=== PATIENT | male | born 1985 | race Caucasian/White ===

== ENCOUNTER 2021-05-25 06:58 | Inpatient (IN) ==
--- NOTE | 2021-05-25 07:22 | Emergency Department Note ---
HPI General Chief complaint: Nausea/Vomiting/Diarrhea Stated complaint: Dehydration Time Seen by Provider: 05/25/21 07:11 Source: patient Mode of arrival: ambulatory Limitations: no limitations History of Present Illness HPI Narrative: Narrative: Patient presents to the emergency department for intermittent muscle spasms of his upper extremity, left calf. 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 His symptoms have been going on for about the last week. Yesterday patient reports nausea without vomiting but dry heaves. Patient since has been tolerating p.o. intake. Patient changes, no substance use. Patient denies alcohol use. Patient denies any focal weakness or numbness or tingling, no visual changes. No fevers or chills. No sick contacts. Related Data Home Medications Medication Instructions Recorded Confirmed montelukast 10 mg tablet 10 mg PO QPM 09/19/19 05/25/21 Previous Rx's Medication Instructions Recorded cholecalciferol (vitamin D3) 50 2,000 unit PO QDAY #1 tab 02/28/19 mcg (2,000 unit) tablet sertraline 100 mg tablet 100 mg PO QDAY 90 Days #90 tab 12/17/20 omeprazole 20 mg tablet,delayed 20 mg PO QDAY 90 Days #90 tab 03/28/21 release albuterol sulfate 90 mcg/actuation 2 puff INHALATION Q6H PRN #18 g 04/04/21 aerosol inhaler buspirone 10 mg tablet 20 mg PO BID 90 Days #360 tab 05/23/21 Allergies Allergy/AdvReac Type Severity Reaction Status Date / Time animal dander Allergy Unknown Congestion Verified 05/25/21 06:59 House Dust Allergy Unknown Congestion Verified 05/25/21 06:59 Seasonal Allergies Allergy Unknown Congestion Uncoded 05/17/20 09:13 Review of Systems ROS ROS Narrative: Narrative: All systems ED: reviewed and negative except as stated. 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) Hypertension (Chronic) Dysphagia (Chronic) Hyperglycemia (Chronic) Body mass index (BMI) of 40.0-44.9 in adult (Chronic) Sprain of calcaneofibular ligament of right ankle, initial encounter (Chronic) Disorder of ligament, left ankle (Chronic) Ankle pain, left (Chronic) Seasonal allergies (Chronic) Sleep apnea (Chronic) Obesity (Chronic) Hypogonadism in male (Chronic) Mood problem (Chronic) Fatigue (Chronic ~2009) Low testosterone (Chronic ~2009) Hiatal hernia (Chronic) Depression (Chronic ~2001) Anxiety (Chronic ~2001) Acid reflux (Chronic) Strain of calf muscle (Chronic) Medical History (Updated 05/26/21 @ 07:18 by Sudheer Gonzalez MD) Acid reflux Adjustment disorder with depressed mood Ankle pain, left Anxiety (~2001) Body mass index (BMI) of 40.0-44.9 in adult Chronic folliculitis Depression (~2001) Disorder of ligament, left ankle Dysphagia ED (erectile dysfunction) of organic origin Fatigue (~2009) Hiatal hernia Hyperglycemia Hypertension Hypogonadism in male Low back pain Low testosterone (~2009) Major depressive disorder, recurrent, mild Mood problem Obesity Seasonal allergies Sleep apnea Sprain of calcaneofibular ligament of right ankle, initial encounter Testicular hypofunction Vitamin D deficiency Surgical History History of tonsillectomy and adenoidectomy No pertinent past surgical history Family History Father DMII (diabetes mellitus, type 2) CVA (cerebral vascular accident) Cancer Mother DMII (diabetes mellitus, type 2) Social History Smoking Status: Never smoker Alcohol Intake Frequency: a few times a month Substance Use: does not use Exam Narrative Narrative: Narrative: General Limitations: no limitations General appearance: Present alert, in no apparent distress and nontoxic Head Head: Present atraumatic, normocephalic and normal inspection ENT ENT: Present normal exam Neck Neck: Present normal inspection Chest Chest: Present normal inspection Respiratory Respiratory: Present normal lung sounds bilaterally; Absent wheezes, stridor and decreased breath sounds Cardiovascular Cardiovascular: Present regular rate, normal rhythm and normal heart sounds Adbominal Abdominal: Present soft and normal bowel sounds Extremities Extremities: Present normal inspection and full ROM Back Back: Absent CVA tenderness (R) and CVA tenderness (L) Neurological Neurological: Present alert, oriented X3 and other (2+ patellar reflex bilaterally, 2+ reflex at the bicep, 5 out of 5 strength throughout, sensation to light touch intact. 3 beats of clonus at bilateral ankle) Psychiatric Psychiatric: Present normal affect Skin Skin: Present warm (WNL) and dry; Absent rash Course Vital Signs Vital signs: Vital Signs Temperature 97.2 F 05/25/21 06:59 Pulse Rate 108 H 05/25/21 06:59 Respiratory Rate 16 05/25/21 06:59 Blood Pressure 133/90 05/25/21 06:59 Pulse Oximetry (%) 97 05/25/21 06:59 Temperature 97.3 F 05/26/21 03:50 Pulse Rate 73 05/26/21 03:50 Respiratory Rate 16 05/26/21 03:50 Blood Pressure 112/69 05/26/21 03:50 Pulse Oximetry (%) 96 05/26/21 03:50 MDM MDM Narrative Medical decision making narrative: Narrative: Patient presents to the emergency department with fasciculations and muscle cramping. Patient has been working in a warehouse and reports he has been extremely hot. Patient was found to have a significantly elevated phosphorus with acute kidney injury. Patient had mildly elevated CK. Discussion was had with nephrology who was agreeable to be consulted with the patient, patient will be admitted to the hospitalist for further work-up and evaluation of hyperphosphatemia and acute kidney injury. Lab Data Result diagrams: 05/26/21 05:14 05/26/21 05:13 Labs: Lab Results 05/25/21 05/25/21 05/25/21 Range/Units 07:40 07:40 07:40 WBC 15.2 H (4.5-11.0) K/mcL RBC 6.17 H (4.50-5.90) M/mcL Hgb 18.7 H (13.5-16.5) g/dL Hct 52.5 (41.0-55.0) % MCV 85.1 (80.0-100.0) fL MCH 30.3 (26.0-34.0) pg MCHC 35.6 (31.0-36.0) g/dL RDW 12.2 (11.5-14.5) % Plt Count 339 (140-440) K/mcL MPV 10.5 H (7.4-10.4) fL Neut % (Auto) 90.3 H (38.0-78.0) % Lymph % (Auto) 5.8 L (15.0-49.0) % [place] % (Auto) 3.5 (1.0-12.0) % Eos % (Auto) 0.1 (0.0-7.0) % Baso % (Auto) 0.3 (0.0-2.0) % Lymph # (Auto) 0.88 L (1.50-4.80) K/mcL [place]pson # (Auto) 0.53 (0.10-0.90) K/mcL Eos # (Auto) 0.01 (0.00-0.70) K/mcL Baso # (Auto) 0.04 (0.00-0.20) K/mcL Absolute Neutrophils 13.75 H (1.80-8.00) K/mcL Sodium (133-145) mmol/L Potassium (3.3-5.1) mmol/L Chloride (96-108) mmol/L Carbon Dioxide (22-30) mmol/L Anion Gap (8.0-16.0) BUN (6-20) mg/dL Creatinine (0.7-1.2) mg/dL GFR Calculation Glucose (70-105) mg/dL Calcium (8.6-10.4) mg/dL Phosphorus (2.5-4.5) mg/dL Magnesium (1.6-2.5) mg/dL Total Bilirubin (0.1-1.0) mg/dL AST (<40) U/L ALT (<40) U/L Alkaline Phosphatase (39-117) U/L Total Creatine Kinase 347 H (24-195) U/L Total Protein (5.9-8.4) gm/dL Albumin (3.2-5.2) gm/dL Globulin (2.2-3.7) gm/dL Albumin/Globulin Ratio (1.0-2.3) TSH 2.03 (0.27-5.01) uIU/mL Urine Color Urine Appearance (Clear) Urine pH (5.0-9.0) Ur Specific [place] (1.000-1.035) Urine Protein (Negative) mg/dL Urine Glucose (UA) (Negative) mg/dL Urine Ketones (Negative) mg/dL Urine Occult Blood (Negative) mg/dL Urine Nitrate (Negative) Urine Bilirubin (Negative) mg/dL Urine Urobilinogen mg/dL Ur Leukocyte Esterase (Negative) /ug Ur Culture Indicated? Ur Random Creatinine (39.0-259.0) mg/dL U Random Total Protein mg/dL U Ralph Prot/Creat Ratio (<0.20) 05/25/21 05/25/21 05/25/21 Range/Units 07:41 10:25 10:25 WBC (4.5-11.0) K/mcL RBC (4.50-5.90) M/mcL Hgb (13.5-16.5) g/dL Hct (41.0-55.0) % MCV (80.0-100.0) fL MCH (26.0-34.0) pg MCHC (31.0-36.0) g/dL RDW (11.5-14.5) % Plt Count (140-440) K/mcL MPV (7.4-10.4) fL Neut % (Auto) (38.0-78.0) % Lymph % (Auto) (15.0-49.0) % Upson % (Auto) (1.0-12.0) % Eos % (Auto) (0.0-7.0) % Baso % (Auto) (0.0-2.0) % Lymph # (Auto) (1.50-4.80) K/mcL [place]pson # (Auto) (0.10-0.90) K/mcL Eos # (Auto) (0.00-0.70) K/mcL Baso # (Auto) (0.00-0.20) K/mcL Absolute Neutrophils (1.80-8.00) K/mcL Sodium 137 (133-145) mmol/L Potassium 3.9 (3.3-5.1) mmol/L Chloride 88 L (96-108) mmol/L Carbon Dioxide 25 (22-30) mmol/L Anion Gap 24.0 H (8.0-16.0) BUN 35 H (6-20) mg/dL Creatinine 2.5 H (0.7-1.2) mg/dL GFR Calculation 32 Glucose 121 H (70-105) mg/dL Calcium 10.0 (8.6-10.4) mg/dL Phosphorus 9.1 H* (2.5-4.5) mg/dL Magnesium 2.0 (1.6-2.5) mg/dL Total Bilirubin 2.9 H (0.1-1.0) mg/dL AST 39 (<40) U/L ALT 41 H (<40) U/L Alkaline Phosphatase 59 (39-117) U/L Total Creatine Kinase (24-195) U/L Total Protein 8.6 H (5.9-8.4) gm/dL Albumin 5.4 H (3.2-5.2) gm/dL Globulin 3.2 (2.2-3.7) gm/dL Albumin/Globulin Ratio 1.7 (1.0-2.3) TSH (0.27-5.01) uIU/mL Urine Color Urine Appearance (Clear) Urine pH (5.0-9.0) Ur Specific [place] (1.000-1.035) Urine Protein (Negative) mg/dL Urine Glucose (UA) (Negative) mg/dL Urine Ketones (Negative) mg/dL Urine Occult Blood (Negative) mg/dL Urine Nitrate (Negative) Urine Bilirubin (Negative) mg/dL Urine Urobilinogen mg/dL Ur Leukocyte Esterase (Negative) /ug Ur Culture Indicated? Ur Random Creatinine 252.7 259.0 (39.0-259.0) mg/dL U Random Total Protein 15 mg/dL U Ralph Prot/Creat Ratio 0.06 (<0.20) 05/25/ Range/Units 10:25 WBC (4.5-11.0) K/mcL RBC (4.50-5.90) M/mcL Hgb (13.5-16.5) g/dL Hct (41.0-55.0) % MCV (80.0-100.0) fL MCH (26.0-34.0) pg MCHC (31.0-36.0) g/dL RDW (11.5-14.5) % Plt Count (140-440) K/mcL MPV (7.4-10.4) fL Neut % (Auto) (38.0-78.0) % Lymph % (Auto) (15.0-49.0) % [place] % (Auto) (1.0-12.0) % Eos % (Auto) (0.0-7.0) % Baso % (Auto) (0.0-2.0) % Lymph # (Auto) (1.50-4.80) K/mcL [place] # (Auto) (0.10-0.90) K/mcL Eos # (Auto) (0.00-0.70) K/mcL Baso # (Auto) (0.00-0.20) K/mcL Absolute Neutrophils (1.80-8.00) K/mcL Sodium (133-145) mmol/L Potassium (3.3-5.1) mmol/L Chloride (96-108) mmol/L Carbon Dioxide (22-30) mmol/L Anion Gap (8.0-16.0) BUN (6-20) mg/dL Creatinine (0.7-1.2) mg/dL GFR Calculation Glucose (70-105) mg/dL Calcium (8.6-10.4) mg/dL Phosphorus (2.5-4.5) mg/dL Magnesium (1.6-2.5) mg/dL Total Bilirubin (0.1-1.0) mg/dL AST (<40) U/L ALT (<40) U/L Alkaline Phosphatase (39-117) U/L Total Creatine Kinase (24-195) U/L Total Protein (5.9-8.4) gm/dL Albumin (3.2-5.2) gm/dL Globulin (2.2-3.7) gm/dL Albumin/Globulin Ratio (1.0-2.3) TSH (0.27-5.01) uIU/mL Urine Color Yellow Urine Appearance Hazy A (Clear) Urine pH 5.0 (5.0-9.0) Ur Specific [place] 1.025 (1.000-1.035) Urine Protein Negative (Negative) mg/dL Urine Glucose (UA) Negative (Negative) mg/dL Urine Ketones 20 A (Negative) mg/dL Urine Occult Blood Negative (Negative) mg/dL Urine Nitrate Negative (Negative) Urine Bilirubin Negative (Negative) mg/dL Urine Urobilinogen Negative mg/dL Ur Leukocyte Esterase Negative (Negative) /ug Ur Culture Indicated? No Ur Random Creatinine (39.0-259.0) mg/dL U Random Total Protein mg/dL U Ralph Prot/Creat Ratio (<0.20) ED POC Tests ED POC Tests: LUCITA - SARS Antigen Negative CC TIME Critical Care Time Critical Care Time: No Discharge Plan Patient/Caregiver Discharge Instructions Pt seen by DIRECTOR OF CLINICAL APPLICATIONS/PA only: No Clinical Impression: Hyperphosphatemia, Acute kidney injury Patient Disposition: Xfer As Inpt ([facility]) Condition: Good Discharge Date/Time: 05/25/21 11:50
[2021-05-25] MEDS ORDERED: LACTATED RINGERS 1,000 ML IV ONE (07:27)
[2021-05-25 08:37] LABS: Basophils # (Auto) 0.04 K/mcL (0.00-0.20); Basophils % (Auto) 0.3 % (0.0-2.0); Eosinophils # (Auto) 0.01 K/mcL (0.00-0.70); Eosinophils % (Auto) 0.1 % (0.0-7.0); Hematocrit 52.5 % (41.0-55.0); Hemoglobin 18.7 g/dL (13.5-16.5); Lymphocytes # (Auto) 0.88 K/mcL (1.50-4.80); Lymphocytes % (Auto) 5.8 % (15.0-49.0); Mean Cell Volume 85.1 fL (80.0-100.0); Mean Corpuscular HGB Conc 35.6 g/dL (31.0-36.0); Mean Platelet Volume 10.5 fL (7.4-10.4); Monocytes # (Auto) 0.53 K/mcL (0.10-0.90); Monocytes % (Auto) 3.5 % (1.0-12.0); Neutrophils % (Auto) 90.3 % (38.0-78.0); Platelet Count 339 K/mcL (140-440); RBC 6.17 M/mcL (4.50-5.90); Red Cell Distribution Width 12.2 % (11.5-14.5); WBC 15.2 K/mcL (4.5-11.0)
[2021-05-25 08:49] LABS: ALT/SGPT 41 U/L (<40); AST/SGOT 39 U/L (<40); Albumin 5.4 gm/dL (3.2-5.2); Albumin/Globulin Ratio 1.7 (1.0-2.3); Alkaline Phosphatase 59 U/L (39-117); Bilirubin,Total 2.9 mg/dL (0.1-1.0); Blood Urea Nitrogen 35 mg/dL (6-20); Carbon Dioxide 25 mmol/L (22-30); Chloride 88 mmol/L (96-108); Globulin 3.2 gm/dL (2.2-3.7); Glomerular Filtration Rate 32; Glucose 121 mg/dL (70-105)
[2021-05-25 08:51] LABS: Creatine Kinase 347 U/L (24-195)
[2021-05-25 08:53] LABS: Phosphorous 9.1 mg/dL (2.5-4.5)
--- NOTE | 2021-05-25 10:43 | Nephrology Consult Note ---
HPI Data of Consult Patient: new to practice Consult date: 05/25/21 Requesting physician: Sudheer Gonzalez Primary Care Provider: Meet Galdamez PA-C Consult Narrative Patient Information: Note initiated : 05/25/21 at 10:42 am Patient: Manoj Kuo 35 y/o M admitted on for Dehydration. Manoj Kuo is a 35-year-old male with depression, anxiety, obesity (BMI 33), obstructive sleep apnea presented to [facility] ED on 05/25/21 for nausea, vomiting, diarrhea and muscle spasms. His work up was significant for acute kidney injury and hyperphosphatemia. He is being admitted for further workup and management. Baseline serum creatinine: 0.9 on 02/22/19 and 09/19/19. Nephrology consultation was requested for acute kidney injury. 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 He drank Gatorade only. He was also trying keto diet. He took NSAIDs (Ibuprofen and also Aleve). Chief complaint: Nausea, vomiting, diarrhea and muscle spasms Reason for consult: Acute kidney injury cc:: CC: Constitutional Constitutional: Present weakness; Absent headache(s) EENT Eyes: Absent blurry vision Nose, mouth and throat: Absent sore throat Cardiovascular Cardiovascular: Absent chest pain and palpatations Respiratory Respiratory: Absent cough and dyspnea Gastrointestinal Gastrointestinal: Present diarrhea, nausea and vomiting Genitourinary Genitourinary: as per HPI Integumentary Integumentary: Absent rash Neurological Neurological: Present weakness; Absent confusion Psychiatric Psychiatric: Absent anxiety and panic attacks Hematologic/Lymphatic Hematologic/Lymphatic: Absent easy bleeding and easy bruising Allergic/Immunologic Allergic/Immunologic: Absent tongue swelling and uticaria PFSH PFSH All Active Problems (Updated 05/25/21 @ 10:43 by Amy Alva MD) Hyperphosphatemia (Acute) Acute kidney injury (Acute) Onychomycosis (Acute) Vitamin D deficiency (Chronic) Low back pain (Chronic) Major depressive disorder, recurrent, mild (Chronic) Chronic folliculitis (Chronic) Adjustment disorder with depressed mood (Chronic) 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) Hypertension (Chronic) Dysphagia (Chronic) Hyperglycemia (Chronic) Body mass index (BMI) of 40.0-44.9 in adult (Chronic) Sprain of calcaneofibular ligament of right ankle, initial encounter (Chronic) Disorder of ligament, left ankle (Chronic) Ankle pain, left (Chronic) Seasonal allergies (Chronic) Sleep apnea (Chronic) Obesity (Chronic) Hypogonadism in male (Chronic) Mood problem (Chronic) Fatigue (Chronic ~2009) Low testosterone (Chronic ~2009) Hiatal hernia (Chronic) Depression (Chronic ~2001) Anxiety (Chronic ~2001) Acid reflux (Chronic) Strain of calf muscle (Chronic) Medical History (Updated 05/25/21 @ 10:43 by Amy Alva MD) Acid reflux Adjustment disorder with depressed mood Ankle pain, left Anxiety (~2001) Body mass index (BMI) of 40.0-44.9 in adult Chronic folliculitis Depression (~2001) Disorder of ligament, left ankle Dysphagia ED (erectile dysfunction) of organic origin Fatigue (~2009) Hiatal hernia Hyperglycemia Hypertension Hypogonadism in male Low back pain Low testosterone (~2009) Major depressive disorder, recurrent, mild Mood problem Obesity Seasonal allergies Sleep apnea Sprain of calcaneofibular ligament of right ankle, initial encounter Testicular hypofunction Vitamin D deficiency Surgical History History of tonsillectomy and adenoidectomy No pertinent past surgical history Family History Father DMII (diabetes mellitus, type 2) CVA (cerebral vascular accident) Cancer Mother DMII (diabetes mellitus, type 2) Social History marital status: occupational status: employed occupation: [employer] alcohol intake frequency: a few times a month substance use type: does not use MEDS/ALLERGIES Home Medications and Allergies Home Medications Medication Instructions Recorded Confirmed Type cholecalciferol (vitamin D3) 50 2,000 unit PO QDAY #1 tab 02/28/19 05/25/21 Rx mcg (2,000 unit) tablet montelukast 10 mg tablet 10 mg PO QPM 09/19/19 05/25/21 History methocarbamol 500 mg tablet See Rx Instructions PO Q6H PRN #30 01/26/20 05/25/21 Rx tab sertraline 100 mg tablet 100 mg PO QDAY 90 Days #90 tab 12/17/20 05/25/21 Rx omeprazole 20 mg tablet,delayed 20 mg PO QDAY 90 Days #90 tab 03/28/21 05/25/21 Rx release albuterol sulfate 90 mcg/actuation 2 puff INHALATION Q6H PRN #18 g 04/04/21 05/25/21 Rx aerosol inhaler buspirone 10 mg tablet 20 mg PO BID 90 Days #360 tab 05/23/21 05/25/21 Rx Allergies Allergy/AdvReac Type Severity Reaction Status Date / Time animal dander Allergy Unknown Congestion Verified 05/25/21 06:59 House Dust Allergy Unknown Congestion Verified 05/25/21 06:59 Seasonal Allergies Allergy Unknown Congestion Uncoded 05/17/20 09:13 Physical Examination Vital Signs Vital signs: Temp Pulse Resp BP Pulse Ox 97.2 F 98 H 16 130/82 96 05/25/21 06:59 05/25/21 10:26 05/25/21 06:59 05/25/21 10:24 05/25/21 10:26 General Appearance General appearance: appears started age and fatigue EENT EENT: mucous membranes dry Neck Neck: no JVD Respiratory Respiratory: clear Cardiovascular Cardiology: no edema and regular rhythm Gastrointestinal Gastrointestinal: no tenderness Integumentary Integumentary: no rash Neurologic Neurologic: no focal deficit and alert and oriented x3 Musculoskeletal Musculoskeletal: no deformities Psychiatric Psychiatric: mood/affect appropriate and cooperative Results Lab Results Result Diagrams: 05/25/21 07:40 05/25/21 07:41 Lab results: Most recent lab results Calcium 10.0 mg/dL (8.6-10.4) 05/25/21 07:41 Phosphorus 9.1 mg/dL (2.5-4.5) H* 05/25/21 07:41 Magnesium 2.0 mg/dL (1.6-2.5) 05/25/21 07:41 A/P Assessment and plan (1) Acute kidney injury: Assessment and plan: Manoj Kuo is a 35-year-old male with depression, anxiety, obesity (BMI 33), obstructive sleep apnea presented to [facility] ED on 05/25/21 for nausea, vomiting, diarrhea and muscle spasms. His work up was significant for acute kidney injury and hyperphosphatemia. He is being admitted for further workup and management. Baseline serum creatinine: 0.9 on 02/22/19 and 09/19/19. Nephrology consultation was requested for acute kidney injury. Acute kidney injury with hyperphosphatemia, present on arrival. There is no r ecent history of IV contrast administration. He used NSAIDs recently (Ibuprofen and Aleve). Intravascular volume depletion considered and treated with IV fluid resuscitation. Hyperphosphatemia is likely associated with keto diet and Gatorade with acute kidney injury. Progress: Serum creatinine increased from a baseline of 0.9 in 2019 to 2.5 (05/25/21). Baseline serum creatinine: 0.9 on 02/22/19 and 09/19/19. Hyperphosphatemia. No previous serum phosphorus. Dehydration. No uremic symptoms. Recommendations/Plan: No urgent acute hemodialysis need. IV fluid rehydration. Work up with renal US, urinalysis, urine random sodium, total protein and creatinine. Avoid NSAIDs, nephrotoxic medications and IV contrast. Monitor BMP and urine output. Status: Acute (2) Hyperphosphatemia: Status: Acute Time Spent With Patient Time: Total time spent is greater than 50% in coordination of care (as documented) at patient's floor/unit and/or counseling patient:
--- NOTE | 2021-05-25 11:07 | Internal Med History&Physical ---
HPI History of Present Illness Patient information: Note initiated : 05/25/21 at 10:58 am Service Date, if different from initiated Date: [] Patient: Manoj Kuo 35 y/o M admitted on for Dehydration. Chief Complaint: [] History of present illness: Mr. Kuo is a 35 year old male with a history of depression, GERD, allergies, obesity presented to the ED for nausea and vomiting and found to have an acute kidney injury. Patient says that he has been experiencing increasing lower back pain, bilateral lower extremity and right upper extremity muscle spasms for about 1 week. The patient has been physical activity at work 2 weeks, he works making [employer] and says that his work is physically demanding and sometimes requiring him to lift pounds or more. Work- up in the ED also showed the patient has a leukocytosis, elevated hemoglobin, elevated phosphorus of 9.1, the patient's total bilirubin was also elevated at 2.9, he has had total bilirubin elevation in the past. Creatinine kinase was evaded at 347. Internal medicine was consulted for hospital admission. The patient endorses some mild myalgias and muscle spasm, denies fevers or chills, no new rash but the patient does have what appears to be folliculitis in bilateral lower extremities and abdomen which has increased recently. Review of systems Constitutional: no fever, fatigue, or weight loss Eyes: no vision changes or pain Cardiovascular: no chest pain, no palpitations Respiratory: no cough or dyspnea Gastrointestinal: positive for nausea and vomiting Genitourinary: no dysuria or difficulty voiding Musculoskeletal: positive for muscle spasms Integumentary: no skin lesion or wound Neurological: no focal weakness or numbness Psychiatric: no anxiety or depression Physical exam Head: Atraumatic, normal inspection. Eyes: normal appearance, no scleral icterus. Neck: full ROM Respiratory: no respiratory distress. Cardiovascular: normal rate and rhythm, S1, S2. GI/Abdominal: soft, nontender, no guarding. Extremities: full range of motion, nontender. Neurological: CN II-XII intact, intact motor, intact sensation. Psychiatric: normal mood. 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) Hypertension (Chronic) Dysphagia (Chronic) Hyperglycemia (Chronic) Body mass index (BMI) of 40.0-44.9 in adult (Chronic) Sprain of calcaneofibular ligament of right ankle, initial encounter (Chronic) Disorder of ligament, left ankle (Chronic) Ankle pain, left (Chronic) Seasonal allergies (Chronic) Sleep apnea (Chronic) Obesity (Chronic) Hypogonadism in male (Chronic) Mood problem (Chronic) Fatigue (Chronic ~2009) Low testosterone (Chronic ~2009) Hiatal hernia (Chronic) Depression (Chronic ~2001) Anxiety (Chronic ~2001) Acid reflux (Chronic) Strain of calf muscle (Chronic) Medical History (Updated 05/25/21 @ 10:43 by Amy Alva MD) Acid reflux Adjustment disorder with depressed mood Ankle pain, left Anxiety (~2001) Body mass index (BMI) of 40.0-44.9 in adult Chronic folliculitis Depression (~2001) Disorder of ligament, left ankle Dysphagia ED (erectile dysfunction) of organic origin Fatigue (~2009) Hiatal hernia Hyperglycemia Hypertension Hypogonadism in male Low back pain Low testosterone (~2009) Major depressive disorder, recurrent, mild Mood problem Obesity Seasonal allergies Sleep apnea Sprain of calcaneofibular ligament of right ankle, initial encounter Testicular hypofunction Vitamin D deficiency Surgical History History of tonsillectomy and adenoidectomy No pertinent past surgical history Family History Father DMII (diabetes mellitus, type 2) CVA (cerebral vascular accident) Cancer Mother DMII (diabetes mellitus, type 2) Social History marital status: occupational status: employed occupation: [employer] alcohol intake frequency: a few times a month substance use type: does not use MEDS/ALLERGIES Home Medications and Allergies Home Medications Medication Instructions Recorded Confirmed Type cholecalciferol (vitamin D3) 50 2,000 unit PO QDAY #1 tab 02/28/19 05/25/21 Rx mcg (2,000 unit) tablet montelukast 10 mg tablet 10 mg PO QPM 09/19/19 05/25/21 History methocarbamol 500 mg tablet See Rx Instructions PO Q6H PRN #30 01/26/20 05/25/21 Rx tab sertraline 100 mg tablet 100 mg PO QDAY 90 Days #90 tab 12/17/20 05/25/21 Rx omeprazole 20 mg tablet,delayed 20 mg PO QDAY 90 Days #90 tab 03/28/21 05/25/21 Rx release albuterol sulfate 90 mcg/actuation 2 puff INHALATION Q6H PRN #18 g 04/04/21 05/25/21 Rx aerosol inhaler buspirone 10 mg tablet 20 mg PO BID 90 Days #360 tab 05/23/21 05/25/21 Rx Allergies Allergy/AdvReac Type Severity Reaction Status Date / Time animal dander Allergy Unknown Congestion Verified 05/25/21 06:59 House Dust Allergy Unknown Congestion Verified 05/25/21 06:59 Seasonal Allergies Allergy Unknown Congestion Uncoded 05/17/20 09:13 EXAM Constitutional Vitals: Temp Pulse Resp BP Pulse Ox 97.2 F 98 H 16 130/82 96 05/25/21 06:59 05/25/21 10:26 05/25/21 06:59 05/25/21 10:24 05/25/21 10:26 DATA Data Completed and Pending Labs: Labs from last 24 hours 05/25/21 05/25/21 05/25/21 07:41 07:40 07:40 WBC RBC Hgb Hct MCV MCH MCHC RDW Plt Count MPV Neut % (Auto) Lymph % (Auto) Bent % (Auto) Eos % (Auto) Baso % (Auto) Lymph # (Auto) Bent # (Auto) Eos # (Auto) Baso # (Auto) Absolute Neutrophils Sodium 137 Potassium 3.9 Chloride 88 L Carbon Dioxide 25 Anion Gap 24.0 H BUN 35 H Creatinine 2.5 H GFR Calculation 32 Glucose 121 H Calcium 10.0 Phosphorus 9.1 H* Magnesium 2.0 Total Bilirubin 2.9 H AST 39 ALT 41 H Alkaline Phosphatase 59 Total Creatine Kinase 347 H Total Protein 8.6 H Albumin 5.4 H Globulin 3.2 Albumin/Globulin Ratio 1.7 TSH 2.03 05/25/21 07:40 WBC 15.2 H RBC 6.17 H Hgb 18.7 H Hct 52.5 MCV 85.1 MCH 30.3 MCHC 35.6 RDW 12.2 Plt Count 339 MPV 10.5 H Neut % (Auto) 90.3 H Lymph % (Auto) 5.8 L Bent % (Auto) 3.5 Eos % (Auto) 0.1 Baso % (Auto) 0.3 Lymph # (Auto) 0.88 L Bent # (Auto) 0.53 Eos # (Auto) 0.01 Baso # (Auto) 0.04 Absolute Neutrophils 13.75 H Sodium Potassium Chloride Carbon Dioxide Anion Gap BUN Creatinine GFR Calculation Glucose Calcium Phosphorus Magnesium Total Bilirubin AST ALT Alkaline Phosphatase Total Creatine Kinase Total Protein Albumin Globulin Albumin/Globulin Ratio TSH A/P Narrative A/P Narrative: Assessment: 35 year old male with a history of depression, GERD, obesity presented to the ED for nausea and vomiting and found to have an acute kidney injury. #Acute kidney injury-suspect prerenal #Nausea and vomiting-seems to be resolving #Muscle spasms #Hyperphosphatemia #Elevated CK-mild #Elevated total bilirubin #Leukocytosis-likely stress related/hemoconcentration #Depression #GERD #Allergies #Obesity Plan -IV fluid, follow urine output and renal function -UA, Urine sodium, Urine protein:creatine ratio, C3, C4, CRP. -Follow CK, CBC, bilirubin. -Bilateral renal ultrasound. -Hold PPI and Singulair for now. -Nephrology consult. -Code status: Full -Disposition: home Time Spent With Patient Time: Total time spent is greater than 50% in coordination of care (as documented) at patient's floor/unit and/or counseling patient:
[2021-05-25] MEDS ORDERED: ONDANSETRON 4 MG/2 ML VIAL IV PRN (12:11)
[2021-05-25] MEDS ORDERED: ACETAMINOPHEN 325 MG TABLET PO PRN (12:11)
[2021-05-25] MEDS ORDERED: ALBUTEROL SULFATE 200 PUFF INHALER INH PRN (12:11)
[2021-05-25] MEDS: 0.9 % SODIUM CHLORIDE 1,000 ML IV SCH ×2 (13:10→20:40)
[2021-05-25 13:40] LABS: Creatinine, Spot Urine 252.7 mg/dL (39.0-259.0); Pro:Crea Ratio 0.06 (<0.20)
[2021-05-25 14:05] LABS: ALT/SGPT 36 U/L (<40); AST/SGOT 32 U/L (<40); Albumin 5.1 gm/dL (3.2-5.2); Albumin/Globulin Ratio 1.8 (1.0-2.3); Alkaline Phosphatase 56 U/L (39-117); Bilirubin,Total 2.8 mg/dL (0.1-1.0); Blood Urea Nitrogen 36 mg/dL (6-20); Calcium 10.1 mg/dL (8.6-10.4); Carbon Dioxide 26 mmol/L (22-30); Chloride 90 mmol/L (96-108); Creatine Kinase 281 U/L (24-195); Globulin 2.9 gm/dL (2.2-3.7); Glomerular Filtration Rate 47; Glucose 121 mg/dL (70-105)
[2021-05-25 14:06] LABS: Complement C3 143.5 mg/dL (90.0-180.0)
[2021-05-25] MEDS: 0.9 % SODIUM CHLORIDE 10 ML SYRINGE IV SCH ×2 (14:27→20:40)
--- NOTE | 2021-05-25 15:32 | Ultrasound Report ---
CLINICAL INFORMATION: Bilateral flank pain COMPARISON: None. FINDINGS: Both kidneys are normal and symmetric in size, position, configuration and echotexture: The right is 11.4 x 5.6 cm and the left is 12 x 6 cm. No focal solid /cystic lesions, stones or hydronephrosis. Arterial blood flow is grossly normal two both kidneys on color Doppler Urinary bladder volume is 340 cc. Patient was unable to void. Prostate volume is normal-23 cc IMPRESSION: Normal exam Interpreted and Authenticated by: Oniel Hoskins 05/25/21
[2021-05-25] MEDS: busPIRone 5 MG TABLET PO SCH (20:40)
[2021-05-25] MEDS: DOCUSATE SODIUM 100 MG CAPSULE PO SCH (20:40)
[2021-05-25] MEDS ORDERED: SENNOSIDES 1 TABLET PO SCH (21:00)
[2021-05-25 22:54] LABS: Appearance,Urine HAZY (Clear); Bilirubin,Urine Negative (Negative); Color,Urine Yellow; Culture Indicated,Urine No; Glucose,Urine (UA) Negative (Negative); Ketones,Urine 20 mg/dL (Negative); Leukocyte Esterase,Urine Negative /ug (Negative); Nitrate,Urine Negative (Negative); Protein,Urine Negative (Negative); Specific Gravity,Urine 1.025 (1.000-1.035); Urine Blood Negative (Negative); Urobilinogen,Urine Negative
[2021-05-26] MEDS: 0.9 % SODIUM CHLORIDE 1,000 ML IV SCH ×2 (03:52→13:07)
[2021-05-26] MEDS: 0.9 % SODIUM CHLORIDE 10 ML SYRINGE IV SCH ×2 (04:02→14:33)
[2021-05-26 07:03] LABS: Basophils # (Auto) 0.03 K/mcL (0.00-0.20); Basophils % (Auto) 0.5 % (0.0-2.0); Eosinophils # (Auto) 0.11 K/mcL (0.00-0.70); Eosinophils % (Auto) 1.7 % (0.0-7.0); Hematocrit 44.1 % (41.0-55.0); Hemoglobin 15.5 g/dL (13.5-16.5); Lymphocytes # (Auto) 1.71 K/mcL (1.50-4.80); Lymphocytes % (Auto) 26.5 % (15.0-49.0); Mean Cell Volume 87.8 fL (80.0-100.0); Mean Corpuscular HGB Conc 35.1 g/dL (31.0-36.0); Mean Platelet Volume 10.3 fL (7.4-10.4); Monocytes # (Auto) 0.78 K/mcL (0.10-0.90); Monocytes % (Auto) 12.1 % (1.0-12.0); Neutrophils % (Auto) 59.2 % (38.0-78.0); Platelet Count 267 K/mcL (140-440); RBC 5.02 M/mcL (4.50-5.90); Red Cell Distribution Width 12.4 % (11.5-14.5); WBC 6.5 K/mcL (4.5-11.0)
[2021-05-26 07:06] LABS: ALT/SGPT 28 U/L (<40); AST/SGOT 25 U/L (<40); Albumin 4.2 gm/dL (3.2-5.2); Albumin/Globulin Ratio 1.8 (1.0-2.3); Alkaline Phosphatase 44 U/L (39-117); Bilirubin,Total 1.9 mg/dL (0.1-1.0); Blood Urea Nitrogen 25 mg/dL (6-20); Calcium 8.5 mg/dL (8.6-10.4); Carbon Dioxide 31 mmol/L (22-30); Chloride 98 mmol/L (96-108); Creatine Kinase 170 U/L (24-195); Globulin 2.4 gm/dL (2.2-3.7); Glomerular Filtration Rate 96; Glucose 102 mg/dL (70-105)
--- NOTE | 2021-05-26 07:38 | Nephrology Progress Note ---
SUBJECTIVE Subjective Patient information: Note initiated : 05/26/21 at 7:36 am Patient: Manoj Kuo 35 y/o M admitted on 05/25/21 for Dehydration. Chief Complaint: Feeling better Pertinent ROS: No urinary symptoms Constitutional Vitals: Vital Signs Temp Pulse Resp BP Pulse Ox 97.3 F 73 16 112/69 96 05/26/21 03:50 05/26/21 03:50 05/26/21 03:50 05/26/21 03:50 05/26/21 03:50 Period Temp Pulse Resp BP Sys/Neff Pulse Ox Last 24 Hr 97.3 F-98.1 F 71-102 - 112-137/68-109 93-100 Intake and Output 05/25/21 05/26/21 05/26/21 21:59 05:59 13:59 Intake Total 3288 1000 Output Total 1175 1500 Balance 2113 -500 Weight 277 lb 8 oz Intake & Output: Intake & Output 05/25/21 05/26/21 05/26/21 21:59 05:59 13:59 Intake Total 3288 1000 Output Total 1175 1500 Balance 2113 -500 Weight 277 lb 8 oz Intake: IV 938 900 Sodium Chloride 0.9% 1,000 ml @ 938 900 125 mls/hr IV .Q8H SUSANA Rx#: [id number] Oral 2350 100 Output: Void Amount 1175 1500 Other: Meal Applesauce, nichole crackers Percent of Meal Consumed 100% Feeding Ability Independent Urine Appearance Clear Clear Urine Color Bright Yellow Bright Yellow Urine Odor Normal General appearance: cooperative and no acute distress Head Head exam: Present normal inspection Eye Eye exam: Present normal appearance ENT ENT exam: Present mucous membranes moist Respiratory Respiratory exam: Absent respiratory distress Cardiovascular Cardiovascular exam: Present normal rate and rhythm GI/Abdominal GI/Abdominal exam: Present soft; Absent tenderness Extremities Exam Extremities exam: Absent joint swelling and pedal edema Neurological Exam Neurological exam: Present alert and oriented X3 Psychiatric Psychiatric exam: Present normal affect and normal mood Skin Skin exam: Present warm; Absent rash A/P Assessment and plan (1) Acute kidney injury: Assessment and plan: Manoj Kuo is a 35-year-old male with depression, anxiety, obesity (BMI 33), obstructive sleep apnea presented to [facility] ED on 05/25/21 for nausea, vomiting, diarrhea and muscle spasms. His work up was significant for acute kidney injury and hyperphosphatemia. He is being admitted for further workup and management. Baseline serum creatinine: 0.9 on 02/22/19 and 09/19/19. Nephrology consultation was requested for acute kidney injury. Acute kidney injury with hyperphosphatemia, present on arrival. There is no recent history of IV contrast administration. He used NSAIDs recently (Ibuprofen and Aleve). Intravascular volume depletion considered and treated with IV fluid resuscitation. Hyperphosphatemia is likely associated with keto diet and Gatorade with acute kidney injury. Workup: Renal US on 05/25/21: Normal Urinalysis on 05/25/21: Yellow, hazy, pH 5, SG 1.025, protein negative, blood negative, leukocyte esterase negative, random urine protein/creatinine ratio 60 mg/g creatinine. Progress: Serum creatinine increased from a baseline of 0.9 in 2019 to 2.5 (05/25/21), 1.0 (05/26/21). Baseline serum creatinine: 0.9 on 02/22/19 and 09/19/19. Hyperphosphatemia. No previous serum phosphorus. Dehydration, resolved. No uremic symptoms. Recommendations/Plan: Acute kidney injury resolved. No underlying kidney disease. Nephrology will sign off. Status: Acute (2) Hyperphosphatemia: Status: Acute Time Spent With Patient Time: Total time spent is greater than 50% in coordination of care (as documented) at patient's floor/unit and/or counseling patient:
[2021-05-26] MEDS: busPIRone 5 MG TABLET PO SCH (08:31)
[2021-05-26 08:38] LABS: Bilirubin,Direct 0.3 mg/dL (<0.3); Bilirubin,Indirect 1.6 mg/dL (0.2-0.8); Bilirubin,Total 1.9 mg/dL (0.1-1.0)
[2021-05-26] MEDS: DOCUSATE SODIUM 100 MG CAPSULE PO SCH (08:59)
[2021-05-26] MEDS ORDERED: SERTRALINE 100 MG TABLET PO SCH (09:00)
--- NOTE | 2021-05-26 11:08 | Discharge Summary ---
Discharge Provider Provider Patient information: Note initiated : 05/26/21 at 11:06 am Service Date, if different from initiated Date: [] Patient: Manoj Kuo 35 y/o M admitted on 05/25/21 for Dehydration. Chief Complaint: [] Date of admission: 05/25/21 11:50 Discharge date: 05/26/21 Primary care physician: Meet Galdamez PA-C Consults: 05/25/21 Consult to Physician [CONS] Stat Comment: Consulting Provider: Gunnar Briggs Reason For Exam: Physician to Consult Consult to Physician [CONS] Stat Comment: nephrology Consulting Provider: Amy Alva Reason For Exam: Physician to Consult Discharge Meds Discharge Medications Home Medications cholecalciferol (vitamin D3) 50 mcg (2,000 unit) tablet 2,000 unit PO QDAY #1 tab 02/28/19 [Rx Confirmed 05/25/21 Last Taken 05/24/21 15:00] montelukast 10 mg tablet 10 mg PO QPM 09/19/19 [History Confirmed 05/25/21 Last Taken 05/24/21 15:00 1500] sertraline 100 mg tablet 100 mg PO QDAY 90 Days #90 tab 12/17/20 [Rx Confirmed 05/25/21 Last Taken 05/24/21 15:00] albuterol sulfate 90 mcg/actuation aerosol inhaler 2 puff INHALATION Q6H PRN #18 g 04/04/21 [Rx Confirmed 05/25/21 Last Taken Unknown] buspirone 10 mg tablet 20 mg PO BID 90 Days #360 tab 05/23/21 [Rx Confirmed 05/25/21 Last Taken 05/24/21 15:00] omeprazole magnesium [Prilosec OTC] 20 mg PO .every other day 15 Days #7 tab 05/26/21 [Rx Last Taken Unknown] COURSE Hospital Course Hospital course: Mr. Kuo is a 35 year old male with a history of depression, GERD, allergies, obesity presented to the ED for nausea and vomiting and found to have an acute kidney injury. Patient says that he has been experiencing increasing lower back pain, bilateral lower extremity and right upper extremity muscle spasms for about 1 week. The patient has been physical activity at work 2 weeks, he works making [employer] and says that his work is physically demanding and sometimes requiring him to lift pounds or more. Work-up in the ED also showed the patient has a leukocytosis, elevated hemoglobin, elevated phosphorus of 9.1, the patient's total bilirubin was also elevated at 2.9, he has had total bilirubin elevation in the past. Creatinine kinase was evaded at 347. Internal medicine was consulted for hospital admission. The patient endorses some mild myalgias and muscle spasm, denies fevers or chills, no new rash but the patient does have what appears to be folliculitis in bilateral lower extremities and abdomen which has increased recently. 05/26 Renal function normalized, indirect hyperbilirubinemia suggestive of Gilbert syndrome. Workup for acute kidney injury unremarkable, nephrology signed off. The patient was discharged to home, indicated he wanted to try stopping Prilosec so changed to every other day dosing for a couple weeks to taper off. Prior home medications continued unchanged. Physical exam Head: Atraumatic, normal inspection. Eyes: normal appearance, no scleral icterus. Neck: full ROM Respiratory: no respiratory distress. Cardiovascular: normal rate and rhythm, S1, S2. GI/Abdominal: soft, nontender, no guarding. Extremities: full range of motion, nontender. Neurological: CN II-XII intact, intact motor, intact sensation. Psychiatric: normal mood. Skin: folliculitis on bilateral lower thighs and abdomen Discharge diagnosis: Acute kidney injury Secondary discharge diagnosis: Possible Gilbert syndrome Time Spent with Patient Time attestation: Total time spent providing and/or coordinating discharge services: EXAM Constitutional Vitals: Temp Pulse Resp BP Pulse Ox 97.9 F 73 18 119/69 94 05/26/21 07:56 05/26/21 07:56 05/26/21 07:56 05/26/21 07:56 05/26/21 07:56 Discharge Data Data Completed and Pending Labs on day of discharge: Labs from last 24 hours 05/26/21 05/26/21 05/26/21 05:14 05:13 05:13 WBC 6.5 RBC 5.02 Hgb 15.5 Hct 44.1 MCV 87.8 MCH 30.9 MCHC 35.1 RDW 12.4 Plt Count 267 MPV 10.3 Neut % (Auto) 59.2 Lymph % (Auto) 26.5 [place] % (Auto) 12.1 H Eos % (Auto) 1.7 Baso % (Auto) 0.5 Lymph # (Auto) 1.71 [place] # (Auto) 0.78 Eos # (Auto) 0.11 Baso # (Auto) 0.03 Absolute Neutrophils 3.82 Sodium 136 Potassium 3.5 Chloride 98 Carbon Dioxide 31 H Anion Gap 7.0 L BUN 25 H Creatinine 1.0 GFR Calculation 96 Glucose 102 Calcium 8.5 L Total Bilirubin 1.9 H 1.9 H Direct Bilirubin 0.3 H Indirect Bilirubin 1.6 H AST 25 ALT 28 Alkaline Phosphatase 44 Total Creatine Kinase 170 C-Reactive Protein Total Protein 6.6 Albumin 4.2 Globulin 2.4 Albumin/Globulin Ratio 1.8 Urine Color Urine Appearance Urine pH Ur Specific [place] Urine Protein Urine Glucose (UA) Urine Ketones Urine Occult Blood Urine Nitrate Urine Bilirubin Urine Urobilinogen Ur Leukocyte Esterase Ur Culture Indicated? Ur Random Creatinine U Random Total Protein U [place] Prot/Creat Ratio Complement C3 Complement C4 05/25/21 05/25/21 05/25/21 12:58 12:58 10:25 WBC RBC Hgb Hct MCV MCH MCHC RDW Plt Count MPV Neut % (Auto) Lymph % (Auto) [place] % (Auto) Eos % (Auto) Baso % (Auto) Lymph # (Auto) [place] # (Auto) Eos # (Auto) Baso # (Auto) Absolute Neutrophils Sodium 135 Potassium 3.7 Chloride 90 L Carbon Dioxide 26 Anion Gap 19.0 H BUN 36 H Creatinine 1.8 H GFR Calculation 47 Glucose 121 H Calcium 10.1 Total Bilirubin 2.8 H Direct Bilirubin Indirect Bilirubin AST 32 ALT 36 Alkaline Phosphatase 56 Total Creatine Kinase 281 H C-Reactive Protein 1.10 H Total Protein 8.0 Albumin 5.1 Globulin 2.9 Albumin/Globulin Ratio 1.8 Urine Color Yellow Urine Appearance Hazy A Urine pH 5.0 Ur Specific [place] 1.025 Urine Protein Negative Urine Glucose (UA) Negative Urine Ketones 20 A Urine Occult Blood Negative Urine Nitrate Negative Urine Bilirubin Negative Urine Urobilinogen Negative Ur Leukocyte Esterase Negative Ur Culture Indicated? No Ur Random Creatinine U Random Total Protein U [place] Prot/Creat Ratio Complement C3 143.5 Complement C4 23.1 05/25/21 05/25/21 10:25 10:25 WBC RBC Hgb Hct MCV MCH MCHC RDW Plt Count MPV Neut % (Auto) Lymph % (Auto) [place] % (Auto) Eos % (Auto) Baso % (Auto) Lymph # (Auto) [place] # (Auto) Eos # (Auto) Baso # (Auto) Absolute Neutrophils Sodium Potassium Chloride Carbon Dioxide Anion Gap BUN Creatinine GFR Calculation Glucose Calcium Total Bilirubin Direct Bilirubin Indirect Bilirubin AST ALT Alkaline Phosphatase Total Creatine Kinase C-Reactive Protein Total Protein Albumin Globulin Albumin/Globulin Ratio Urine Color Urine Appearance Urine pH Ur Specific [place] Urine Protein Urine Glucose (UA) Urine Ketones Urine Occult Blood Urine Nitrate Urine Bilirubin Urine Urobilinogen Ur Leukocyte Esterase Ur Culture Indicated? Ur Random Creatinine 259.0 252.7 U Random Total Protein 15 U [place] Prot/Creat Ratio 0.06 Complement C3 Complement C4 Discharge Plan Patient/Caregiver Discharge Instructions Activity: increase activity as tolerated Diet: Regular Diet Prescriptions: New omeprazole magnesium [Prilosec OTC] 20 mg tablet,delayed release (DR/EC) 20 mg PO .every other day 15 Days Qty: 7 RF: 0 Continued cholecalciferol (vitamin D3) 2,000 unit tablet 2,000 unit PO QDAY Qty: 1 RF: 0 sertraline 100 mg tablet 100 mg PO QDAY 90 Days Qty: 90 RF: 0 albuterol sulfate 90 mcg/actuation HFA aerosol inhaler 2 puff INHALATION Q6H PRN (Reason: shortness of breath or wheezing) Qty: 18 RF: 1 buspirone 10 mg tablet 20 mg PO BID 90 Days Qty: 360 RF: 0 montelukast [Singulair] 10 mg tablet 10 mg PO QPM RF: 0 Discontinued omeprazole 20 mg tablet,delayed release (DR/EC) 20 mg PO QDAY 90 Days Qty: 90 RF: 0 Follow Up Plan Follow up with: Meet aGldamez PA-C [Primary Care Provider] - Patient Disposition: Home, Self-Care Plan of Treatment: Decrease prilosec 20 mg to every other day for 15 days then discontinue and monitor for symptoms to return. If symptoms return then you may resume prilosec 20 mg daily. Prognosis: Good Discharge Orders: Discharge Order (Routine); Ordered 05/26/21 Ordered By: Gunnar BAHENA VTE Deep Vein Thrombosis/Pulmonary Embolism Present on Admission: No
== END 2021-05-26 16:10 | disposition home or self-care (01) | DRG 684 ==
LOC: ED 06:58 → MEDSUR 11:50
PROVIDERS: ADMIT Internal Medicine; ATTEND Internal Medicine